=== PATIENT | male | born 1955 | race Caucasian/White ===

== ENCOUNTER 2017-08-03 19:57 | Emergency (ER) | payer OTHER ==
[2017-08-03 20:10] VITALS: RESP 16
[2017-08-03] MEDS ORDERED: TDAP ADULT 0.5 ML INJ (BOOSTRIX) IM ONE (21:44)
--- NOTE | 2017-08-03 21:46 | EDPHY ---
H & P Stated Complaint: l thumb lac with box printing machine operator Time Seen by Provider: 08/03/17 21:45 HPI/ROS: HPI: This 8-year-old male who presents with Chief Complaint: Left thumb laceration Location: Left thumb Quality: Laceration Duration: 1 hour prior to arrival Signs and Symptoms: + mild bleeding, no radiation, no numbness, no weakness, no tingling, no incontinence, no decreased range of motion Timing: Acute Severity: Moderate Context: Unsure of last tetanus. Right hand dominant. Patient was using a box printing machine operator to cut cardboard and slipped and cut his left thumb with immediate pain and bleeding. She applied direct pressure was cessation of bleeding. Modifying Factors: Direct pressure Comment: ROS: Constitutional: No fever, no chills, no weight loss Eyes: No blurred vision Respiratory: No shortness of breath, no cough Cardiovascular: No chest pain Gastrointestinal: No nausea, no vomiting no diarrhea Genitourinary: No dysuria Extremities: No myalgias Neurologic: No weakness, no numbness Skin: No rashes Hematologic: No bruising, no bleeding MEDICAL the/SURGICAL/SOCIAL HISTORY: Generally healthy. Does not take any regular medications. Denies surgical history. Source: Patient Exam Limitations: No limitations - Personal History Current Tetanus/Diphtheria Vaccine: Yes Current Tetanus Diphtheria and Acellular Pertussis (TDAP): Yes - Medical/Surgical History Hx Asthma: No Hx Chronic Respiratory Disease: No Hx Diabetes: No Hx Cardiac Disease: No Hx Renal Disease: No Hx Cirrhosis: No Hx Alcoholism: No Hx HIV/AIDS: No Hx Splenectomy or Spleen Trauma: No - Social History Smoking Status: Never smoked - Physical Exam Exam: CONSTITUTIONAL: Elderly pleasant male, awake and alert, no obvious distress HEENT: Atraumatic and normocephalic, PERRL, EOMI. Tympanic membranes clear. . Oropharynx clear, no exudate and moist pink mucosa. Airway patent. No lymphadenopathy. No meningismus. Cardiovascular: Normal S1/S2, regular rate, regular rhythm, without murmur rub or gallop. PULMONARY/CHEST: Symmetrical and nontender. Clear to auscultation bilaterally Good air movement. No accessory muscle usage. ABDOMEN: Soft, nondistended, nontender, no rebound, no guarding, no peritoneal signs, no masses or organomegaly. No CVAT. EXTREMITIES: 2/2 pulses, left thumb 3.5 cm distal phalanx near DIP joint space ; complex c-shaped laceration through lateral 1/3 nail only; no avulsion of nail ; no subungal hematoma; flexion extension and light touch sensation intact. no clubbing, no cyanosis or edema. NEUROLOGICAL: no focal neuro deficits. GCS 15. SKIN: Warm and dry, no erythema. no rash. Good capillary refill. Constitutional: Initial Vital Signs Temperature (C) 37 C 08/03/17 20:06 Heart Rate 92 08/03/17 20:06 Respiratory Rate 16 08/03/17 20:06 Blood Pressure 151/94 H 08/03/17 20:06 O2 Sat (%) 96 08/03/17 20:06 O2 Delivery Mode Room Air Allergies/Adverse Reactions: No Known Allergies Allergy (Unverified 01/19/12 13:47) Home Medications: Medication Instructions Recorded oxyCODONE/APAP 5/325 [Percocet 1 - 2 tab PO Q4H PRN #20 tab 08/03/17 5/325 (*)] Medical Decision Making - Diagnostics Imaging Results: Imaging Impressions Finger X-Ray 08/03/17 20:59 Impression: 1. Soft tissue laceration suspected adjacent to the distal phalanx left thumb. No underlying osseous abnormality seen. Procedures: Procedure: Laceration repair. Verbal consent was obtained from the patient. The complex C-shaped 3.5 cm laceration on the left thumb was anesthetized in the usual fashion. The wound was irrigated, draped and explored to its base with a gloved finger. There were no deep structures involved. No tendon injury was identified. Nail was involved; but no nail bed injury. No foreign bodies identified. The wound was repaired with #15, 6-0 Prolene in simple interrupted pattern. Good hemostasis was achieved. Patient tolerated procedure well. The procedure was performed by myself. ED Course/Re-evaluation: Wound care, laceration repair, x-rays X-ray my read shows no fracture dislocation Nail was injured but not avulsed in no nail bed injury. 15 sutures were used for Laceration repair No signs of neurovascular compromise/tenting of skin/compartment syndrome/ extremities and joints examined above and below area of concern and are neurovascularly intact. xeroform, 2x2 gauze, finger splint placed. Follow up with Orthopedics 3-5 days. Differential Diagnosis: Differential diagnosis includes but is not limited to laceration, nerve injury, tendon injury, no head injury, fracture. - Data Points Medications Given: Discontinued Medications Diphtheria/Tetanus/Acell Pertussis (Boostrix) 0.5 ml IM .ONCE ONE Stop: 08/03/17 21:45 Last Admin: 08/03/17 21:48 Dose: 0.5 ml Departure - Departure Disposition: Home, Routine, Self-Care Clinical Impression: Laceration of left thumb with damage to nail Qualifiers: Encounter type: initial encounter Foreign body presence: without foreign body Qualified Code(s): S61.112A - Laceration without foreign body of left thumb with damage to nail, initial encounter Condition: Good Instructions: Finger Laceration (ED), Nail Avulsion (ED) Additional Instructions: Keep the dressing and splint in place until seen by Orthopedics. Take ibuprofen 600-800 mg every 6-8 hours with food as needed for pain and inflammation. Take [place] as needed sparingly for breakthrough pain or severe pain. Apply ice for 30 minutes at a time; 2-3 times per day for the next 1-2 days. Follow up with Orthopedics in 3-5 days at which time they will evaluate and recommend with you if conservative management versus surgery is indicated. Sutures need to be removed in 7-10 days. The x-rays obtained in the emergency department today demonstrate no evidence of an obvious fracture. Sometimes fractures are not obvious on the initial set of x-rays performed in the ED. For this reason, you should have repeat x-rays performed in 7-10 days if you are having any pain exclude the possibility of an occult fracture. Referrals: Zelalem Lindsey MD [Primary Care Provider] - As per Instructions Shane Barth MD [Medical Doctor] - As per Instructions Prescriptions: oxyCODONE/APAP 5/325 [Percocet 5/325 (*)] 1 - 2 tab PO Q4H PRN #20 tab PRN Reason: Pain, Severe
[2017-08-03 23:11] VITALS: BP 180/106; PULSE 64; TEMP 98.1; O2SAT 93
== END 2017-08-03 23:10 | disposition home or self-care (01) ==
PROC: 0HQGXZZ Repair Left Hand Skin, External Approach (ICD-10-PCS; principal; 2017-08-03)
DX: S61.112A Laceration without foreign body of left thumb with damage to nail, initial encounter (principal); Z23 Encounter for immunization; W26.0XXA Contact with knife, initial encounter
CPT/HCPCS: L3925